=== PATIENT | male | born 1955 | race Caucasian/White ===

== ENCOUNTER 2019-05-15 11:59 | Day surgery (SDC) | payer OTHER, SELFPAY ==
--- NOTE | 2019-05-15 07:24 | P.HP_ITS ---
History of Present Illness History of Present Illness Date Patient Seen: 05/15/19 Time Patient Seen: 12:58 Chief complaint: 24028 Narrative: 63 year old male comes in today for consideration of a screening colonoscopy. Last colonoscopy on 08/08/2009 was normal. Secondary to family history of colon cancer in his mother, 5 year recall recommended. There have been no lower GI symptoms suggesting disease such as a change in bowel habits, bleeding, abdominal pain or anemia. As noted above, mother had colon cancer. Denies family history of colon polyps. Overall health issues have been stable, including no major cardiac events for at least 6 weeks. PCP: Dr. Rivas. Past medical history: Basal cell carcinoma of nose Depression Elevated PSA Degenerative disc disease, lumbar Sciatica Hyperlipidemia Alcohol abuse in remission Tobacco use disorder Past surgical history: Herniated disc surgery, 1989 Family history: Father, heart disease, cancer Mother: Colon cancer, alcohol, stroke Siblings: 4 brothers, 1 with diabetes Social history: , works at [employer]. Meds Home Medications and Allergies Home Medications Medication Instructions Recorded Confirmed Type aspirin 325 mg PO PRN #0 03/16/11 05/15/19 History ibuprofen 600 mg PO PRN #0 03/16/11 05/15/19 History atorvastatin 10 mg PO BEDTIME 05/15/19 05/15/19 History citalopram 10 mg PO DAILY 05/15/19 05/15/19 History Allergies Allergy/AdvReac Type Severity Reaction Status Date / Time No Known Drug Allergies Allergy Verified 05/15/19 12:14 Review of Systems Review of Systems ROS Unobtainable: All systems reviewed & are unremarkable except as noted in HPI and below Exam Narrative Exam Narrative: GENERAL: Alert and oriented, appearing stated age and in no acute distress. HEENT: Head normocephalic/atraumatic. Pupils equal, round, and reactive to light and accomodation. Extraocular muscles intact. Tympanic membranes clear. Nasal mucosa moist, septum midline. Oral mucosa moist, no lesions. Neck soft and supple, no lymphadenopathy. LUNGS: Clear to ausculation bilaterally, no wheezes, rhonchi or rales. CV: Normal S1 and S2 with regular rate and rhythm, no audible murmurs, rubs or gallops. BREASTS: Symmetric, no masses or lesions. No nipple retraction or discharge. No supraclavicular or axillary lymphadenopathy. ABDOMEN: Soft, non-tender, non-distended, no organomegaly. Positive bowel sounds. EXTREMITIES: No clubbing, cyanosis, or edema. NEURO: Cranial nerves II through XII grossly intact, no focal deficits. PSYCH: Alert and oriented x 3. SKIN: No concerning lesions. Assessment & Plan Assessment & Plan narrative: 1. Family history of colon cancer 2. Screening for colon cancer Plan for colonoscopy. The nature and character of the procedure as well as anticipated results were discussed. The possibility of not completing the procedure was also discussed. Possible complications including aspiration pneumonia, bleeding, perforation and reaction to medications either for sedation or preparation and missed lesions were discussed. Questions were answered and proceeding to the colonoscopy was elected. Informed consent signed. I sincerely appreciate the referral allowing me to participate in this patient's care. Please contact me with any questions or concerns.
[2019-05-15] MEDS: SODIUM CHLORIDE 0.9% 1,000 ML 200 ML IV (12:16)
[2019-05-15] MEDS: HYOSCYAMINE 0.125 MG TABLET PO (12:19)
[2019-05-15 12:26] VITALS: BP 134/81; PULSE 79; RESP 18; TEMP 36.8; O2SAT 97; BMI 31.1
--- NOTE | 2019-05-15 12:59 | PM.OP.ENDO ---
Operative Date/Time/Diagnoses Date of procedure: 05/15/19 Time of procedure: 13:00 Pre-op diagnosis: 1. Family history of colon cancer 2. Screening for colon cancer Post-op diagnosis: other ( 1. Normal colonoscopy, 2. Diverticulosis, left-sided) Procedure & Clinicians Study performed: Colonoscopy Same procedure as scheduled: Yes Indications: 1. Family history of colon cancer 2. Screening for colon cancer Surgeon: Eli Werner Procedure Notes SCOAP/Timeout: 13:00 Procedure in detail: ENDOSCOPIST: Eli Werner MD Sedation RN: Riri Mayo RN Sedation start time: 1:03 p.m. Sedation end time: 1:26 p.m. PROCEDURE: Colonoscopy INDICATIONS: 1. Family history of colon cancer 2. Screening for colon cancer MEDICATION: Levsin 0.125 mg sublingual, incremental doses of Versed and fentanyl until appropriate level sedation achieved. ASA CLASS: 2 CECAL WITHDRAWAL TIME: 7 minutes COMPLICATIONS: None. EXTENT OF PROCEDURE: Cecum. QUALITY OF PREP: Good with portions of liquid stool. PROCEDURE: Prior to insertion of the colonoscope, a digital rectal examination was accomplished with circumferential palpation of the distal rectal mucosa without significant findings being noted. The high-definition colonoscope was passed into the rectum in the usual fashion and advanced over to the cecum without difficulty. The ileocecal valve, appendiceal stoma, and medial wall all could be inspected and no abnormalities were seen. ASCENDING COLON: As the colonoscope was withdrawn, care was taken to expose and inspect the haustral folds and no abnormalities were seen. HEPATIC FLEXURE: Normal no polyps, diverticula or other abnormalities. TRANSVERSE COLON: Normal no polyps, diverticula or other abnormalities. DESCENDING COLON: Minor diverticulosis, otherwise normal, no polyps, or other abnormalities. SIGMOID COLON: Minor diverticulosis, otherwise normal, no polyps, or other abnormalities. RECTUM: Normal. J maneuver was produced. There was no significant perianal disease. The J maneuver was broken. The remainder of the rectum was inspected and there was no external hemorrhoid disease. The scope was withdrawn. IMPRESSION: 1. Normal colonoscopy 2. Diverticulosis, left-sided, mild PLAN: 1. Repeat colonoscopy in 5 years secondary to family history of colon cancer. The possibility of a missed lesion including a malignancy has been discussed with the patient previously. Potential alarm symptoms have been discussed and should be reported immediately. Scope withdrawal time: 7 minutes Sedation minutes: 23 Findings: diverticulosis Specimen(s): none sent Complications: none Impression: As above Post-procedure Recommendations: Colonscopy in 5 years Follow up: as needed Disposition: PACU
[2019-05-15] MEDS: MIDAZOLAM 5 MG/5 ML VIAL IV (13:06)
[2019-05-15] MEDS: fentaNYL 250 MCG/5 ML INJ IV (13:10)
[2019-05-15 13:31] VITALS: BP 127/76; PULSE 66; RESP 16; TEMP 36.2; O2SAT 94
[2019-05-15 13:35] VITALS: BP 124/73; PULSE 72; RESP 16; O2SAT 90
[2019-05-15 13:40] VITALS: BP 117/71; PULSE 63; RESP 15; O2SAT 92
[2019-05-15 14:06] VITALS: BP 111/69; PULSE 64; RESP 15; TEMP 36.4; O2SAT 95
== END 2019-05-15 14:12 | disposition home or self-care (01) ==
PROVIDERS: Family Provider Family Medicine; PCP Family Medicine; Visit Provider Student in an Organized Health Care Education/Training Program
PROC: 0DJD8ZZ Inspection of Lower Intestinal Tract, Via Natural or Artificial Opening Endoscopic (ICD-10-PCS; CPT 45378; principal; 2019-05-15 13:00)
DX: Z12.11 Encounter for screening for malignant neoplasm of colon (principal); K57.30 Diverticulosis of large intestine without perforation or abscess without bleeding; Z80.0 Family history of malignant neoplasm of digestive organs
CPT/HCPCS: G0105; J2250; J3010

== ENCOUNTER → 2021-03-13 09:55 | Outpatient (CLI) | payer OTHER, SELFPAY ==
[2021-03-13 10:08] LABS: Add Manual Diff / Slide Review NO; Basophils Absolute Auto 100 /uL (0-100); Basophils Percent Auto 0.9 % (0-2); Eosinophils Absolute Auto 300 /uL (0-450); Hemoglobin 15.9 g/dL (13.5-17.5); Lymphocytes Absolute Auto 2300 /uL (1100-4500); Lymphocytes Percent Auto 22.9 % (25-40); Mean Corpuscular Hemoglobin 29.8 PG (26-34); Mean Corpuscular Volume 87.7 fL (80-100); Monocytes Absolute Auto 900 /uL (0-900); Monocytes Percent Auto 8.7 % (3-14); Neutrophils Absolute Auto 6500 /uL (1500-7000); Neutrophils Percent Auto 64.5 % (50-75); Platelet Count 724 X10^3/uL (150-400); Red Blood Cell Count 5.36 X10^6/uL (4.5-5.9); Red Cell Distribution Width 15.7 % (11.6-14.8)
[2021-03-13 10:23] LABS: Alanine Aminotransferase 27 IU/L (<50); Albumin 4.1 g/dL (3.5-5.0); Albumin Globulin Ratio 1.4 (1.0-2.8); Alkaline Phosphatase 57 U/L (38-126); Aspartate Aminotransferase 34 IU/L (17-59); BUN Creatinine Ratio 23.8 (6-22); Bilirubin Total 0.4 mg/dL (0.2-1.3); Blood Urea Nitrogen 24 mg/dL (9-20); Calcium 9.4 mg/dL (8.4-10.2); Carbon Dioxide 28 mmol/L (22-32); Chloride 108 mmol/L (98-107); Estimated Glomerular Filt Rate > 60.0 mL/min (>60); Glucose 104 mg/dL (80-110); HEMOLYSIS 18 (0-50); Lactate Dehydrogenase 421 U/L (313-618); Potassium 4.5 mmol/L (3.4-5.1); Sodium 138 mmol/L (137-145); Total Protein 7.1 g/dL (6.3-8.2)
== END ==
PROVIDERS: Internal Medicine Medical Oncology; PCP Family Medicine; Referring Provider Family Medicine; Visit Provider Family Medicine
DX: D47.3 Essential (hemorrhagic) thrombocythemia (principal)
CPT/HCPCS: 36415; 80053; 81270; 83615; 85025

== ENCOUNTER → 2022-12-24 15:38 | Outpatient (CLI) | payer OTHER, SELFPAY ==
--- NOTE | 2022-12-24 15:39 | DI.US.S_ITS ---
PROCEDURE: US ABD AORTA ANEURYSM SCREEN INDICATIONS: SCREENING TECHNIQUE: Real time scanning was performed of the aorta and iliac arteries, with image documentation. COMPARISON: None. FINDINGS: Aorta: Proximal aortic diameter measures 2.9 cm. Mid-aorta measures 2.3 cm. Distal aortic diameter is 2.0 cm. Mild atherosclerotic plaque is noted. Iliac arteries: Right common iliac artery measures 2.3 cm. Left common iliac artery measures 1.8 cm. Atherosclerotic calcifications are present. IMPRESSION: No abdominal aortic aneurysm. Aortoiliac atherosclerosis is noted. Approved by: Trent Sanchez M.D. on 12/24/2022 at 20:41
== END ==
PROVIDERS: PCP Family Medicine; Referring Provider Family Medicine; Visit Provider Family Medicine
DX: Z13.6 Encounter for screening for cardiovascular disorders (principal); I70.0 Atherosclerosis of aorta
CPT/HCPCS: 76706

== ENCOUNTER → 2023-10-15 10:43 | Outpatient (CLI) | payer OTHER, SELFPAY ==
[2023-10-15 11:44] LABS: Add Manual Diff / Slide Review NO; Basophils Absolute Auto 0 /uL (0-100); Basophils Percent Auto 0.5 % (0-2); Eosinophils Absolute Auto 200 /uL (0-450); Eosinophils Percent Auto 2.2 % (2-4); Hematocrit 44.6 % (41-53); Hemoglobin 15.3 g/dL (13.5-17.5); Lymphocytes Absolute Auto 2100 /uL (1100-4500); Lymphocytes Percent Auto 30.7 % (25-40); Mean Corpuscular HGB Conc 34.3 % (30-36); Mean Corpuscular Hemoglobin 36.3 PG (26-34); Mean Corpuscular Volume 105.9 fL (80-100); Monocytes Absolute Auto 600 /uL (0-900); Neutrophils Absolute Auto 4100 /uL (1500-7000); Neutrophils Percent Auto 58.6 % (50-75); Platelet Count 496 X10^3/uL (150-400); Red Blood Cell Count 4.21 X10^6/uL (4.5-5.9); Red Cell Distribution Width 14.8 % (11.6-14.8); White Blood Cell Count 6.9 X10^3/uL (4.5-11.0)
[2023-10-15 11:59] LABS: Alanine Aminotransferase 24 IU/L (<50); Albumin 4.2 g/dL (3.5-5.0); Albumin Globulin Ratio 1.4 (1.0-2.8); Alkaline Phosphatase 61 U/L (38-126); Aspartate Aminotransferase 35 IU/L (17-59); BUN Creatinine Ratio 26.2 (6-22); Bilirubin Total 0.6 mg/dL (0.2-1.3); Blood Urea Nitrogen 27 mg/dL (9-20); Carbon Dioxide 24 mmol/L (22-32); Chloride 109 mmol/L (98-107); Estimated Glomerular Filt Rate > 60 mL/min (>60); Globulin 3.1 g/dL (1.7-4.1); Glucose 113 mg/dL (80-110); HEMOLYSIS < 15 (0-50); Potassium 4.2 mmol/L (3.4-5.1); Sodium 137 mmol/L (137-145); Total Protein 7.3 g/dL (6.3-8.2)
== END ==
LOC: LAB 10:48
PROVIDERS: PCP Family Medicine; Referring Provider Internal Medicine Hematology & Oncology; Visit Provider Internal Medicine Hematology & Oncology
DX: D47.3 Essential (hemorrhagic) thrombocythemia (principal)
CPT/HCPCS: 36415; 80053; 85025

== ENCOUNTER → 2024-01-27 07:43 | Outpatient (CLI) | payer OTHER, SELFPAY ==
[2024-01-27 08:59] LABS: Add Manual Diff / Slide Review NO; Basophils Absolute Auto 100 /uL (0-100); Basophils Percent Auto 0.9 % (0-2); Eosinophils Absolute Auto 200 /uL (0-450); Eosinophils Percent Auto 2.8 % (2-4); Hematocrit 43.2 % (41-53); Hemoglobin 14.9 g/dL (13.5-17.5); Lymphocytes Absolute Auto 1800 /uL (1100-4500); Lymphocytes Percent Auto 28.2 % (25-40); Mean Corpuscular HGB Conc 34.4 % (30-36); Mean Corpuscular Hemoglobin 35.9 PG (26-34); Mean Corpuscular Volume 104.5 fL (80-100); Monocytes Absolute Auto 600 /uL (0-900); Monocytes Percent Auto 9.1 % (3-14); Neutrophils Absolute Auto 3800 /uL (1500-7000); Platelet Count 450 X10^3/uL (150-400); Red Blood Cell Count 4.14 X10^6/uL (4.5-5.9); Red Cell Distribution Width 14.6 % (11.6-14.8); White Blood Cell Count 6.4 X10^3/uL (4.5-11.0)
[2024-01-27 09:24] LABS: Alanine Aminotransferase 20 IU/L (<50); Albumin Globulin Ratio 1.5 (1.0-2.8); Alkaline Phosphatase 56 U/L (38-126); Aspartate Aminotransferase 24 IU/L (17-59); BUN Creatinine Ratio 22.7 (6-22); Bilirubin Total 0.6 mg/dL (0.2-1.3); Blood Urea Nitrogen 25 mg/dL (9-20); Carbon Dioxide 25 mmol/L (22-32); Chloride 108 mmol/L (98-107); Estimated Glomerular Filt Rate > 60 mL/min (>60); Globulin 2.6 g/dL (1.7-4.1); Glucose 109 mg/dL (80-110); HEMOLYSIS < 15 (0-50); Sodium 138 mmol/L (137-145); Total Protein 6.6 g/dL (6.3-8.2)
== END ==
PROVIDERS: PCP Family Medicine; Referring Provider Internal Medicine Hematology & Oncology; Visit Provider Internal Medicine Hematology & Oncology
DX: D47.3 Essential (hemorrhagic) thrombocythemia (principal)
CPT/HCPCS: 36415; 80053; 85025

== ENCOUNTER 2024-02-27 15:31 | Emergency (ER) | payer OTHER, SELFPAY ==
[2024-02-27] VITALS (12 sets, daily range): BP systolic 122–148; BP diastolic 63–86; PULSE 69–84; RESP 11–27; TEMP 36.1; O2SAT 94–97; BMI 32.1
--- NOTE | 2024-02-27 15:33 | DI.CT.S_ITS ---
PROCEDURE: CT TRAUMA CHEST ABDOMEN PELVIS INDICATIONS: Fall off ladder. Right hip pain TECHNIQUE: MDCT axial chest images were obtained with IV contrast in the arterial phase. Maximum intensity projections and multiplanar reformats were obtained. MDCT axial abdomen and pelvis images were obtained with IV contrast in the portal venous phase. Multiplanar reformats were obtained. Optional delayed phase scanning may also be obtained Advanced techniques were used to lower patient radiation exposure. COMPARISON:None. FINDINGS Image Quality: Diagnostic. Chest: Lungs and pleura: No pneumothorax or hemothorax. No pulmonary contusions or lacerations. Mild bibasilar bronchiectasis and [id number] areas of right greater than left atelectasis and scarring. These are likely chronic findings. Small nodules, for example in the right image 9/124, under 6 millimeters, could be followed in [address] chest CT if the patient is considered high risk. Vascular: No dissection or pseudoaneurysm. No incidental central pulmonary embolism. No hemopericardium. Coronary and atherosclerotic calcifications. Mediastinum: No mediastinum hematoma. No suspicious mass or lymph nodes. No actionable thyroid nodules. Mildly patulous esophagus. Chest wall: Intact clavicles, scapula, and glenohumeral joint. Nonacute appearing bilateral rib fractures. Thoracic spine: No acute fracture or traumatic subluxation. ABDOMEN and PELVIS: Liver: No laceration or capsular hematoma. Left lobe granuloma Gallbladder: Unremarkable. Biliary system: Non-dilated. Pancreas: Unremarkable. Spleen: No laceration or capsular hematoma. Adrenals: No suspicious nodules. Kidneys: No contrast extravasation or hydronephrosis. No solid masses. Nonobstructing stones versus hilar vascular calcifications Vessels and lymph nodes: No pathology lymph nodes by size criteria. No dissection or aneurysm. No retroperitoneal hematoma. Moderate atherosclerotic disease. Bowel and peritoneum: No suspicious region of mesenteric hemorrhage or hemoperitoneum. No bowel obstruction. Nondilated appendix. Colonic diverticula. Pelvis: Unremarkable bladder. Pelvic ring and femurs: No pelvic ring disruption. There is a moderately comminuted and displaced fracture of the proximal femoral shaft, with a displaced lesser trochanter fragment and greater trochanter fragment. Lumbar spine: Age-indeterminate height loss of L2. Abdominal wall: Hemorrhage is seen adjacent to the right femur fracture. IMPRESSION: Complex right proximal femur fracture as described above. Age-indeterminate height loss at L2. Otherwise, no acute fracture or traumatic subluxation. Other findings as above. No acute traumatic abnormality in the chest. Dictated by: Yosef Buckley M.D. on 02/27/2024 at 16:40 Approved by: Yosef Buckley M.D. on 02/27/2024 at 16:53
--- NOTE | 2024-02-27 15:33 | DI.CT.S_ITS ---
PROCEDURE: CT HEAD/BRAIN WO CON INDICATIONS: Fall off ladder with head injury TECHNIQUE: Noncontrast 4.5 mm thick angled axial sections acquired from the foramen magnum to the vertex, with coronal and sagittal reformats. For radiation dose reduction, the following was used: automated exposure control, adjustment of mA and/or kV according to patient size. COMPARISON: None. FINDINGS: Image quality: Diagnostic CSF spaces: Basal cisterns are patent. Lateral ventricles are symmetric. Volume: Vascular calcifications. Periventricular white matter disease is commonly seen with chronic microangiopathy. Volume loss is present. These findings are [id number] Brain: No acute hemorrhage or gross loss of chung-white differentiation. Craniofacial structures: No significant paranasal sinus opacity IMPRESSION: No acute intracranial hemorrhage. Dictated by: Yosef Buckley M.D. on 02/27/2024 at 16:37 Approved by: Yosef Buckley M.D. on 02/27/2024 at 16:38
--- NOTE | 2024-02-27 15:33 | DI.CT.S_ITS ---
PROCEDURE: CT CERVICAL SPINE WO CON INDICATIONS: Fall off ladder with head injury TECHNIQUE: Noncontrast 3 mm thick sections acquired from the skull base to the T4 level. Sagittal and coronal reformats were then constructed. For radiation dose reduction, the following was used: automated exposure control, adjustment of mA and/or kV according to patient size. COMPARISON: None. FINDINGS: Image quality: Diagnostic Bones: Mild cervical degenerative changes. Vertebral body heights are well maintained. No traumatic subluxation. Soft tissues: No pathologic prevertebral soft tissue swelling. There are vascular calcifications. Chest findings are separately dictated. IMPRESSION: No displaced fracture or traumatic subluxation. If there is high concern for further derangement, consider MRI evaluation. Dictated by: Yosef Buckley M.D. on 02/27/2024 at 16:38 Approved by: Yosef Buckley M.D. on 02/27/2024 at 16:40
[2024-02-27 15:47] LABS: Add Manual Diff / Slide Review NO; Basophils Absolute Auto 0 /uL (0-100); Basophils Percent Auto 0.5 % (0-2); Eosinophils Absolute Auto 200 /uL (0-450); Eosinophils Percent Auto 1.7 % (2-4); Hemoglobin 14.1 g/dL (13.5-17.5); Lymphocytes Absolute Auto 2100 /uL (1100-4500); Lymphocytes Percent Auto 22.8 % (25-40); Mean Corpuscular HGB Conc 34.4 % (30-36); Mean Corpuscular Hemoglobin 35.3 PG (26-34); Mean Corpuscular Volume 102.4 fL (80-100); Monocytes Absolute Auto 700 /uL (0-900); Monocytes Percent Auto 7.4 % (3-14); Neutrophils Absolute Auto 6200 /uL (1500-7000); Neutrophils Percent Auto 67.6 % (50-75); Platelet Count 487 X10^3/uL (150-400); Red Blood Cell Count 4.01 X10^6/uL (4.5-5.9); White Blood Cell Count 9.2 X10^3/uL (4.5-11.0)
[2024-02-27 15:58] LABS: Alanine Aminotransferase 28 IU/L (<50); Albumin 3.9 g/dL (3.5-5.0); Albumin Globulin Ratio 1.6 (1.0-2.8); Alkaline Phosphatase 56 U/L (38-126); Aspartate Aminotransferase 34 IU/L (17-59); BUN Creatinine Ratio 21.6 (6-22); Bilirubin Total 0.7 mg/dL (0.2-1.3); Blood Urea Nitrogen 24 mg/dL (9-20); Calcium 8.9 mg/dL (8.4-10.2); Carbon Dioxide 23 mmol/L (22-32); Chloride 107 mmol/L (98-107); Estimated Glomerular Filt Rate > 60 mL/min (>60); Globulin 2.5 g/dL (1.7-4.1); Glucose 128 mg/dL (80-110); HEMOLYSIS < 15 (0-50); Lipase 94 U/L (23-300); Potassium 4.1 mmol/L (3.4-5.1); Sodium 136 mmol/L (137-145); Total Protein 6.4 g/dL (6.3-8.2)
[2024-02-27] MEDS: ONDANSETRON 4 MG/2 ML INJ IV (15:59)
--- NOTE | 2024-02-27 16:08 | ED_ITS ---
HPI - General Adult General Chief complaint: Trauma Stated complaint: Fall off a ladder 12-15ft Time Seen by Provider: 02/27/24 15:32 Source: patient and EMS Mode of arrival: EMS History of Present Illness HPI narrative: Patient is a 68-year-old male. Not on anti coagulation. Is on hydroxyurea secondary to some platelet issues. Is here for evaluation of injuries that he sustained when he fell approximately 15 ft from a ladder. Landed on his right side. Has an obvious deformity to the right hip. Potential loss of consciousness. Is in a cervical collar and on a vacuum backboard. He denied pain medication by EMS. Has a history of alcohol and drug abuse and did not want to be tempted so denied any of these medications. Denies chest pain. No abdominal pain. No headache. Most of the pain is located in his right hip. No upper extremity discomfort. Related Data Home Medications Medication Instructions Recorded Confirmed atorvastatin 10 mg tablet 60 mg PO BEDTIME 05/15/19 02/27/24 citalopram 10 mg tablet 20 mg PO DAILY 05/15/19 02/27/24 losartan 25 mg tablet 100 mg PO DAILY 11/21/21 02/27/24 Previous Rx's Medication Instructions Recorded hydroxyurea 500 mg capsule (Hydrea) 500 mg PO DAILY #90 caplets 03/20/22 Allergies Allergy/AdvReac Type Severity Reaction Status Date / Time No Known Drug Allergies Allergy Verified 02/27/24 15:52 Review of Systems Review of Systems ROS Unobtainable: All systems reviewed & are unremarkable except as noted in HPI and below Patient History Social History household members: spouse Exam Initial Vital Signs Initial Vital Signs: Vital Signs Pulse Rate 77 02/27/24 15:34 Pulse Oximetry 95 02/27/24 15:34 Const General: comfortable HENMT Head: normal to inspection and normocephalic Chest Chest: No crepitus and No tenderness Resp Effort & Inspection: normal respiratory effort Auscultation: clear to auscultation bilaterally Cardio Rate: regular rate Rhythm: regular rhythm Pulses: dorsalis pedis present on the right GI Inspection: normal to inspection and non-distended Palpation: soft and No tender Back/Spine/Pelvis Cervical Spine: collar present Thoracic/Lumbar Spine: No thoracic spinal tenderness and No lumbar spinal tenderness Skin Other: Superficial abrasions to right elbow Neuro General: patient alert, patient awake and patient oriented x3 Extrem Other: Obvious deformity to the right hip. Course Orders Ordered: ED Orders 02/27/24 15:33 CT Trauma Chest Abdomen Pelvis Stat CT cervical spine wo con Stat CT head/brain wo con Stat 02/27/24 15:40 Complete Blood Count AUTO DIFF Stat Comprehensive Metabolic Panel Stat Lipase Stat 02/27/24 17:24 XR femur RT min 2V Stat XR hip w pel if done RT 2V Stat XR knee RT 1to2V Stat Discontinued Medications Acetaminophen (Ofirmev) 1,000 mg in 100 mls @ 400 mls/hr IV NOW ONE Stop: 02/27/24 16:22 Last Infusion: 02/27/24 16:35 Dose: Infused Documented By: Admin: 02/27/24 16:13 Dose: 400 mls/hr Documented By: SAILAJA Ondansetron HCl (Ondansetron 4 Mg/2 Ml Inj) 4 mg IV NOW ONE Stop: 02/27/24 15:58 Last Admin: 02/27/24 15:59 Dose: 4 mg Documented By: SAILAJA Vital Signs Vital signs: Vital Signs - 8 hr 02/27/24 15:34 02/27/24 15:35 02/27/24 15:35 Temperature Pulse Rate 77 77 Respiratory Rate Blood Pressure 145/81 H Pulse Oximetry 95 94 Oxygen Delivery Method 02/27/24 15:52 02/27/24 15:53 02/27/24 15:53 Temperature 97.0 F L Pulse Rate 83 73 Respiratory Rate 17 15 Blood Pressure 145/81 H 132/66 Pulse Oximetry 94 95 Oxygen Delivery Method Room Air 02/27/24 16:00 02/27/24 16:00 02/27/24 16:30 Temperature Pulse Rate 72 69 Respiratory Rate 18 11 L Blood Pressure 122/63 Pulse Oximetry 95 96 Oxygen Delivery Method 02/27/24 16:30 02/27/24 17:00 02/27/24 17:00 Temperature Pulse Rate 73 Respiratory Rate 15 Blood Pressure 130/73 129/71 Pulse Oximetry 97 Oxygen Delivery Method 02/27/24 17:30 02/27/24 17:30 Temperature Pulse Rate 81 Respiratory Rate 27 H Blood Pressure 146/74 H Pulse Oximetry 97 Oxygen Delivery Method Medical Decision Making Lab Data Lab results reviewed: Yes I reviewed the patient's lab results. 02/27/24 15:40 02/27/24 15:40 Labs: Lab Results 02/27/24 Range/Units 15:40 WBC 9.2 (4.5-11.0) X10^3/uL RBC 4.01 L (4.5-5.9) X10^6/uL Hgb 14.1 (13.5-17.5) g/dL Hct 41.0 (41-53) % MCV 102.4 H (80-100) fL MCH 35.3 H (26-34) PG MCHC 34.4 (30-36) % RDW 14.0 (11.6-14.8) % Plt Count 487 H (150-400) X10^3/uL Neut % (Auto) 67.6 (50-75) % Lymph % (Auto) 22.8 L (25-40) % [place] % (Auto) 7.4 (3-14) % Eos % (Auto) 1.7 L (2-4) % Baso % (Auto) 0.5 (0-2) % Neut # (Auto) 6200 (3004-4991) /uL Lymph # (Auto) 2100 (4678-2742) /uL [place] # (Auto) 700 (0-900) /uL Eos # (Auto) 200 (0-450) /uL Baso # (Auto) 0 (0-100) /uL Sodium 136 L (137-145) mmol/L Potassium 4.1 (3.4-5.1) mmol/L Chloride 107 (98-107) mmol/L Carbon Dioxide 23 (22-32) mmol/L BUN 24 H (9-20) mg/dL Creatinine 1.11 (0.66-1.25) mg/dL Estimated GFR > 60 (>60) mL/min BUN/Creatinine Ratio 21.6 (6-22) Glucose 128 H (80-110) mg/dL Calcium 8.9 (8.4-10.2) mg/dL Total Bilirubin 0.7 (0.2-1.3) mg/dL AST 34 (17-59) IU/L ALT 28 (<50) IU/L Alkaline Phosphatase 56 (38-126) U/L Total Protein 6.4 (6.3-8.2) g/dL Albumin 3.9 (3.5-5.0) g/dL Globulin 2.5 (1.7-4.1) g/dL Albumin/Globulin Ratio 1.6 (1.0-2.8) Lipase 94 (23-300) U/L Imaging Data CT chest/abd/pelvis: Radiologist's Impression: PROCEDURE: CT TRAUMA CHEST ABDOMEN PELVIS INDICATIONS: Fall off ladder. Right hip pain TECHNIQUE: MDCT axial chest images were obtained with IV contrast in the arterial phase. Maximum intensity projections and multiplanar reformats were obtained. MDCT axial abdomen and pelvis images were obtained with IV contrast in the portal venous phase. Multiplanar reformats were obtained. Optional delayed phase scanning may also be obtained Advanced techniques were used to lower patient radiation exposure. COMPARISON:None. FINDINGS Image Quality: Diagnostic. Chest: Lungs and pleura: No pneumothorax or hemothorax. No pulmonary contusions or lacerations. Mild bibasilar bronchiectasis and [id number] areas of right greater than left atelectasis and scarring. These are likely chronic findings. Small nodules, for example in the right image 9/124, under 6 millimeters, could be followed in [address] with optional chest CT if the patient is considered high risk. Vascular: No dissection or pseudoaneurysm. No incidental central pulmonary embolism. No hemopericardium. Coronary and atherosclerotic calcifications. Mediastinum: No mediastinum hematoma. No suspicious mass or lymph nodes. No actionable thyroid nodules. Mildly patulous esophagus. Chest wall: Intact clavicles, scapula, and glenohumeral joint. Nonacute appearing bilateral rib fractures. Thoracic spine: No acute fracture or traumatic subluxation. ABDOMEN and PELVIS: Liver: No laceration or capsular hematoma. Left lobe granuloma Gallbladder: Unremarkable. Biliary system: Non-dilated. Pancreas: Unremarkable. Spleen: No laceration or capsular hematoma. Adrenals: No suspicious nodules. Kidneys: No contrast extravasation or hydronephrosis. No solid masses. Nonobstructing stones versus hilar vascular calcifications Vessels and lymph nodes: No pathology lymph nodes by size criteria. No dissection or aneurysm. No retroperitoneal hematoma. Moderate atherosclerotic disease. Bowel and peritoneum: No suspicious region of mesenteric hemorrhage or hemoperitoneum. No bowel obstruction. Nondilated appendix. Colonic diverticula. Pelvis: Unremarkable bladder. Pelvic ring and femurs: No pelvic ring disruption. There is a moderately comminuted and displaced fracture of the proximal femoral shaft, with a displaced lesser trochanter fragment and greater trochanter fragment. Lumbar spine: Age-indeterminate height loss of L2. Abdominal wall: Hemorrhage is seen adjacent to the right femur fracture. IMPRESSION: Complex right proximal femur fracture as described above. Age-indeterminate height loss at L2. Otherwise, no acute fracture or traumatic subluxation. Other findings as above. No acute traumatic abnormality in the chest. CT - cervical spine: Radiologist's Impression: PROCEDURE: CT CERVICAL SPINE WO CON INDICATIONS: Fall off ladder with head injury TECHNIQUE: Noncontrast 3 mm thick sections acquired from the skull base to the T4 level. Sagittal and coronal reformats were then constructed. For radiation dose reduction, the following was used: automated exposure control, adjustment of mA and/or kV according to patient size. COMPARISON: None. FINDINGS: Image quality: Diagnostic Bones: Mild cervical degenerative changes. Vertebral body heights are well maintained. No traumatic subluxation. Soft tissues: No pathologic prevertebral soft tissue swelling. There are vascular calcifications. Chest findings are separately dictated. IMPRESSION: No displaced fracture or traumatic subluxation. If there is high concern for further derangement, consider MRI evaluation. CT scan - head: Radiologist's Impression: PROCEDURE: CT HEAD/BRAIN WO CON INDICATIONS: Fall off ladder with head injury TECHNIQUE: Noncontrast 4.5 mm thick angled axial sections acquired from the foramen magnum to the vertex, with coronal and sagittal reformats. For radiation dose reduction, the following was used: automated exposure control, adjustment of mA and/or kV according to patient size. COMPARISON: None. FINDINGS: Image quality: Diagnostic CSF spaces: Basal cisterns are patent. Lateral ventricles are symmetric. Volume: Vascular calcifications. Periventricular white matter disease is commonly seen with chronic microangiopathy. Volume loss is present. These findings are [id number] Brain: No acute hemorrhage or gross loss of chung-white differentiation. Craniofacial structures: No significant paranasal sinus opacity IMPRESSION: No acute intracranial hemorrhage. Extremity x-ray #1: Radiologist's Impression: PROCEDURE: XR FEMUR RT MIN 2V INDICATIONS: Intertrochanteric fracture TECHNIQUE: 2 views of the femur were acquired. COMPARISON: None. FINDINGS: Bones: Intratrochanteric fracture of the right femur. Soft tissues: No suspicious soft tissue calcifications or masses. IMPRESSION: Intratrochanteric fracture of the right femur. Extremity x-ray #2: Radiologist's Impression: PROCEDURE: XR HIP W PEL IF DONE RT 2V INDICATIONS: Intertrochanteric fracture TECHNIQUE: 2 views of the hip were acquired. COMPARISON: None. FINDINGS: Bones: Oblique fracture through the intratrochanteric region of the right femur, with angulation. Soft tissues: No suspicious soft tissue calcifications or masses. IMPRESSION: Oblique, angulated fracture of the right femur. Extremity x-ray #3: Radiologist's Impression: PROCEDURE: XR KNEE RT 1TO2V INDICATIONS: Intertrochanteric hip fracture, knee x-ray requested by orth TECHNIQUE: 3 views of the knee were acquired. COMPARISON: None. FINDINGS: Bones: No fractures or dislocations. No suspicious bony lesions. Tricompartmental osteophytosis. Soft tissues: Trace joint effusion. No suspicious soft tissue calcifications. Vascular calcifications. IMPRESSION: No acute bony abnormality or significant effusion. MDM Narrative Medical decision making narrative: Patient arrived as a modified trauma in a cervical collar and vacuum splint. Has obvious deformity to the right proximal femur. CT scan of the head and cervical spine are negative. He has no spinal tenderness in the thoracic or lumbar spine. Has what appears to be a proximal right femur/intertrochanteric femur fracture on the CT scan. Rest of his CT scans are negative. Superficial abrasion to the right forearm. Discussed the case with Dr. Obando on-call for Orthopedic surgery who recommended x-rays. X-rays once again demonstrate fracture. He was neurovascularly intact. He was comfortable with his leg somewhat in flexion. He was denied opioid pain medication. He was a history of opioid abuse and also alcohol abuse and states that he does not want any opioid pain medicine. He was given IV Tylenol. He states that with the IV Tylenol and not moving his leg in in the position that it is and he is actually relatively well controlled with regard to pain. Orthopedic surgery recommends transfer to [facility] given the complexity of the fracture. I discussed the case with Dr. Flores at [facility] Emergency Department who accepts the patient in transfer. Discussed the need for transfer with the patient. Patient stable for transport. We will hold on any splinting and just make sure the patient is at position of comfort. Patient expressed understanding and agreement with this plan. Discharge Plan Departure Patient Disposition: [facility]fer [facility] Clinical Impression: Intertrochanteric fracture of right hip Prescriptions: No Action atorvastatin 10 mg Tablet 60 mg PO BEDTIME citalopram 10 mg Tablet 20 mg PO DAILY losartan 25 mg Tablet 100 mg PO DAILY hydroxyurea [Hydrea] 500 mg Capsule 500 mg PO DAILY Qty: 90 3RF Referrals: Lisa Rivas MD [Primary Care Provider] -
[2024-02-27] MEDS: ACETAMINOPHEN IV 1,000 MG/100 ML VIAL 400 MG IV (16:13)
--- NOTE | 2024-02-27 17:24 | DI.RAD.S_ITS ---
PROCEDURE: XR FEMUR RT MIN 2V INDICATIONS: Intertrochanteric fracture TECHNIQUE: 2 views of the femur were acquired. COMPARISON: None. FINDINGS: Bones: Intratrochanteric fracture of the right femur. Soft tissues: No suspicious soft tissue calcifications or masses. IMPRESSION: Intratrochanteric fracture of the right femur. Dictated by: Sam Quick M.D. on 02/27/2024 at 18:09 Approved by: Sam Quick M.D. on 02/27/2024 at 18:10
--- NOTE | 2024-02-27 17:24 | DI.RAD.S_ITS ---
PROCEDURE: XR HIP W PEL IF DONE RT 2V INDICATIONS: Intertrochanteric fracture TECHNIQUE: 2 views of the hip were acquired. COMPARISON: None. FINDINGS: Bones: Oblique fracture through the intratrochanteric region of the right femur, with angulation. Soft tissues: No suspicious soft tissue calcifications or masses. IMPRESSION: Oblique, angulated fracture of the right femur. Dictated by: Sam Quick M.D. on 02/27/2024 at 18:07 Approved by: Sam Quick M.D. on 02/27/2024 at 18:08
--- NOTE | 2024-02-27 17:24 | DI.RAD.S_ITS ---
PROCEDURE: XR KNEE RT 1TO2V INDICATIONS: Intertrochanteric hip fracture, knee x-ray requested by orth TECHNIQUE: 3 views of the knee were acquired. COMPARISON: None. FINDINGS: Bones: No fractures or dislocations. No suspicious bony lesions. Tricompartmental osteophytosis. Soft tissues: Trace joint effusion. No suspicious soft tissue calcifications. Vascular calcifications. IMPRESSION: No acute bony abnormality or significant effusion. Dictated by: Sam Quick M.D. on 02/27/2024 at 18:06 Approved by: Sam Quick M.D. on 02/27/2024 at 18:06
[2024-02-27] MEDS: KETOROLAC 30 MG/ML VIAL 15 MG IV (19:31)
== END 2024-02-27 19:44 | disposition short-term general hospital (02) ==
PROVIDERS: Emergency Provider Emergency Medicine; PCP Family Medicine
DX: S72.141A Displaced intertrochanteric fracture of right femur, initial encounter for closed fracture (principal); S09.90XA Unspecified injury of head, initial encounter; S50.811A Abrasion of right forearm, initial encounter; W11.XXXA Fall on and from ladder, initial encounter
CPT/HCPCS: 36415; 70450; 71275; 72125; 73502; 73552; 73560; 74177; 80053; 83690; 85025; 96365; 96375; 99285; J0136; J1885; J2405; Q9967

== ENCOUNTER 2024-06-05 13:36 | Day surgery (SDC) | payer OTHER, SELFPAY ==
[2024-06-05 14:36] VITALS: BP 151/85; PULSE 80; RESP 16; TEMP 36.1; O2SAT 97
[2024-06-05] MEDS: FLEETS ENEMA 1 EACH PR (14:43)
--- NOTE | 2024-06-05 15:09 | PM.HP.1 ---
History of Present Illness History of Present Illness Date Patient Seen: 06/05/24 Time Patient Seen: 15:10 Chief complaint: Colonoscopy Narrative: 68-year-old man family history of colon cancer in both mother and brother here for screening colonoscopy. Last colonoscopy 2018. No abdominal concerns today. PFSH Family History (Updated 06/05/24 @ 15:10 by Brayden Naik MD) Mother Cancer Social History household members: spouse alcohol intake: former Meds Home Medications and Allergies Home Medications Medication Instructions Recorded Confirmed Type atorvastatin 10 mg tablet 60 mg PO BEDTIME 05/15/19 06/05/24 History citalopram 10 mg tablet 20 mg PO DAILY 05/15/19 06/05/24 History losartan 25 mg tablet 100 mg PO DAILY 11/21/21 06/05/24 History hydroxyurea 500 mg capsule (Hydrea) 500 mg PO DAILY #90 caplets 03/20/22 06/05/24 Rx aspirin 81 mg tablet 81 mg PO DAILY 06/05/24 06/05/24 History Allergies Allergy/AdvReac Type Severity Reaction Status Date / Time No Known Drug Allergies Allergy Verified 06/05/24 14:33 Exam Vital Signs (past 8 hours): - 06/05/24 14:36 Temperature 96.9 F L Pulse Rate 80 Respiratory Rate 16 Blood Pressure 151/85 H Pulse Oximetry 97 Oxygen Delivery Method Room Air Oxygen Delivery Method Room Air Narrative Exam Narrative: General adult man alert oriented no acute distress Chest nonlabored respiration Extremities warm well perfused Assessment & Plan Assessment and plan (1) Family history of colon cancer: Status: Acute Assessment & Plan narrative: The patient requires colorectal screening and colonoscopy is recommended. Technical details were discussed. Risks, benefits, alternatives explained. Risks including but not limited to myocardial infarction, aspiration, bleeding, pain, missed lesion, incomplete examination, need for further radiographic studies, intestinal injury, and need for major abdominal surgery were discussed. All questions were answered to their satisfaction, and they are in agreement with this plan. Time-Based Coding :: [TOTAL MINUTES] spent with patient and on the chart (including review of chart, obtaining history, exam, reviewing outside data, placing orders, documenting exam and treatment plan, and counseling patient) on [DATE].
[2024-06-05 15:25] VITALS: BP 104/70; PULSE 89; RESP 15; TEMP 36.9; O2SAT 97
--- NOTE | 2024-06-05 15:28 | PM.OP.COLON ---
Operative Date/Time/Diagnoses Date of procedure: 06/05/24 Time of procedure: 15:28 Pre-op diagnosis: Family history of colon cancer Procedure & Clinicians Study performed: Aborted colonoscopy Indications: Family history of colon cancer Surgeon: Brayden Naik Procedure Notes Procedure in detail: The history and physical was performed/updated and the patient is ASA class is 2. The procedure was discussed in detail with the patient. Potential risks complications including infection, bleeding, missed diagnosis, perforation, need for surgery, and were explained. Their questions were answered and informed consent was obtained. Patient was brought to the procedure room and placed standard monitoring equipment. The patient's vital signs were monitored continuously throughout the entire procedure. Prior to starting time-out was performed. The patient was placed in the left lateral recumbent position. Procedural sedation was administered by anesthesia. Examination began with a thorough inspection of the perianal area there was no evidence of fissures, fistulae, external hemorrhoids or cutaneous malignancy. The colonoscopy scope was then placed into the anal canal and was advanced forward. The quality of the preparation was inadequate for safe and accurate performance of the exam Post-procedure Plan for aftercare: Repeat with alternative prep
[2024-06-05 15:30] VITALS: BP 125/81; PULSE 83; RESP 10; O2SAT 97
[2024-06-05 15:36] VITALS: BP 122/83; PULSE 81; RESP 13; TEMP 36.9; O2SAT 97
== END 2024-06-05 16:00 | disposition home or self-care (01) ==
PROVIDERS: PCP Family Medicine; Referring Provider Surgery; Visit Provider Surgery
PROC: 0DJD8ZZ Inspection of Lower Intestinal Tract, Via Natural or Artificial Opening Endoscopic (ICD-10-PCS; CPT 45378; principal; 2024-06-05 15:15)
DX: Z12.11 Encounter for screening for malignant neoplasm of colon (principal); Z80.0 Family history of malignant neoplasm of digestive organs; Z53.09 Procedure and treatment not carried out because of other contraindication
CPT/HCPCS: G0105; J2704

== ENCOUNTER → 2024-07-30 07:11 | Outpatient (CLI) | payer OTHER, SELFPAY ==
--- NOTE | 2024-07-30 07:18 | DI.US.S_ITS ---
PROCEDURE: US CAROTID DOPPLER BI INDICATIONS: peripheral vascular disease, dizziness TECHNIQUE: Color and pulse Doppler interrogation was performed of both carotid systems, with image documentation and velocity measurements. COMPARISON: None. FINDINGS: Stenosis calculations are based on SRU (Society of Radiologists in Ultrasound) criteria. Right side: Brachial blood pressure: 123/75 mm Hg. Common carotid artery peak systolic velocity: 57 cm/sec. Internal carotid artery peak systolic velocity: 94 cm/sec. Internal carotid artery end diastolic velocity: 37 cm/sec. External carotid artery peak systolic velocity: 121 cm/sec. ICA/CCA peak systolic ratio: 1.7 . Cazares scale imaging description: Prominent calcific and soft plaque Percent internal carotid artery stenosis: Less than 50% stenosis . Vertebral artery: Flow direction is antegrade. Left side: Brachial blood pressure: 139/78 mm Hg. Common carotid artery peak systolic velocity: 91 cm/sec. Internal carotid artery peak systolic velocity: 93 cm/sec. Internal carotid artery end diastolic velocity: 39 cm/sec. External carotid artery peak systolic velocity: 196 cm/sec. ICA/CCA peak systolic ratio: 1.0 . Cazares scale imaging description: Prominent calcific and soft plaque Percent internal carotid artery stenosis: Less than 50% stenosis . Vertebral artery: Flow direction is antegrade. IMPRESSION: 1. In the right carotid artery, there is less than 50% stenosis based on peak systolic velocity criteria. Prominent calcific and soft plaquing. 2. In the left carotid artery, there is less than 50% stenosis stenosis based on peak systolic velocity criteria. Prominent calcific and soft plaquing. 3. Antegrade vertebral arteries. Dictated by: Lenard Mckeon M.D. on 07/30/2024 at 12:33 Approved by: Lenard Mckeon M.D. on 07/30/2024 at 12:36
--- NOTE | 2024-07-30 07:18 | DI.RAD.S_ITS ---
PROCEDURE: XR FEMUR RT MIN 2V INDICATIONS: FEMUR FRACTURE TECHNIQUE: 2 views of the femur were acquired. COMPARISON: [facility], CR, XR FEMUR RT MIN 2V, 02/27/2024, 17:26. FINDINGS: Bones: Healing intertrochanteric fracture with bridging callus medially but persistent lateral lucency is transfixed by intramedullary aidan and femoral neck screws in good position. The distal fixation screw in the distal femoral metaphysis has failed, and is angulated with fracture in the midportion. Second fixation screw intact. Soft tissues: No suspicious soft tissue calcifications or masses. IMPRESSION: Healing instrumented intertrochanteric fracture. Failure of distal fixation screw associated with intramedullary aidan Approved by: Arturo Downs M.D. on 07/30/2024 at 13:15
[2024-07-30 08:10] LABS: Add Manual Diff / Slide Review NO; Basophils Absolute Auto 100 /uL (0-100); Basophils Percent Auto 0.9 % (0-2); Eosinophils Absolute Auto 100 /uL (0-450); Hemoglobin 13.8 g/dL (13.5-17.5); Lymphocytes Absolute Auto 2200 /uL (1100-4500); Lymphocytes Percent Auto 35.1 % (25-40); Mean Corpuscular HGB Conc 34.3 % (30-36); Mean Corpuscular Hemoglobin 36.3 PG (26-34); Mean Corpuscular Volume 105.5 fL (80-100); Monocytes Absolute Auto 600 /uL (0-900); Monocytes Percent Auto 9.7 % (3-14); Neutrophils Absolute Auto 3300 /uL (1500-7000); Neutrophils Percent Auto 52.3 % (50-75); Platelet Count 491 X10^3/uL (150-400); Red Blood Cell Count 3.79 X10^6/uL (4.5-5.9); White Blood Cell Count 6.3 X10^3/uL (4.5-11.0)
[2024-07-30 08:35] LABS: Alanine Aminotransferase 18 IU/L (<50); Albumin Globulin Ratio 1.5 (1.0-2.8); Alkaline Phosphatase 69 U/L (38-126); Aspartate Aminotransferase 25 IU/L (17-59); BUN Creatinine Ratio 22.2 (6-22); Bilirubin Total 0.8 mg/dL (0.2-1.3); Blood Urea Nitrogen 22 mg/dL (9-20); Calcium 9.7 mg/dL (8.4-10.2); Carbon Dioxide 26 mmol/L (22-32); Chloride 102 mmol/L (98-107); Estimated Glomerular Filt Rate > 60 mL/min (>60); Globulin 2.7 g/dL (1.7-4.1); Glucose 100 mg/dL (80-110); HEMOLYSIS 19 (0-50); Lactate Dehydrogenase 198 U/L (120-246); Potassium 4.8 mmol/L (3.4-5.1); Sodium 135 mmol/L (137-145); Total Protein 6.7 g/dL (6.3-8.2)
== END ==
PROVIDERS: Student in an Organized Health Care Education/Training Program; Family Provider Family Medicine; PCP Family Medicine; Referring Provider Family Medicine; Visit Provider Family Medicine
DX: D47.3 Essential (hemorrhagic) thrombocythemia (principal); I73.9 Peripheral vascular disease, unspecified; T84.418A Breakdown (mechanical) of other internal orthopedic devices, implants and grafts, initial encounter; R42 Dizziness and giddiness; I65.23 Occlusion and stenosis of bilateral carotid arteries; S72.101D Unspecified trochanteric fracture of right femur, subsequent encounter for closed fracture with routine healing; X58.XXXD Exposure to other specified factors, subsequent encounter
CPT/HCPCS: 36415; 73552; 80053; 83615; 85025; 93880

== ENCOUNTER 2024-08-21 09:00 | Outpatient (RCR) | payer OTHER, SELFPAY ==
--- NOTE | 2024-08-06 13:51 | PT.OIE ---
Current Diagnoses Benign paroxysmal vertigo, bilateral (08/12/24) Peripheral vascular disease, unspecified (08/12/24) Visit Care Team Role Provider Type Lisa Rivas MD Attending Provider Physician Family Provider Primary Care Provider Referring Provider Specialty: Family Practice Address: [address] [place] [address], [id number] Email: [email or web address] Physical Therapy Initial Evaluation PT-OP-A Visit Information Start: 08/06/24 11:25 Freq: Status: Active Protocol: Document 08/13/24 12:10 DCW (Rec: 08/06/24 11:29 DCW [id number]) Out-Patient Physical Therapy Visit Information Visit Information Visit Type Initial Evaluation Visit Start Time 10:45 Visit Stop Time 11:20 Visit Number 1 Number of SKIMMER SCOOP OPERATOR Visits 0 Evaluation Information Evaluation Date 08/06/24 PT-OP-B Current Condition Start: 08/06/24 11:25 Freq: Status: Active Protocol: Document 08/13/24 12:10 DCW (Rec: 08/06/24 13:51 DCW [id number]) Current Condition History of Current Condition Onset Date February, Current Complaints Positional vertigo History of Current Condition Pt is a 68 year old male complaining of a five month history of motion-induced vertigo. Pt reports episodes last a few seconds. Symptoms are provoked by getting into and out of bed, or rolling over. Pt began following hitting his head when falling out of a tree, which also resulted in a femoral fracture . At the time, pt was transported to [facility], and noticed when he would get up, he would feel very woozy, but just assumed it had to do with everything else going on. Dizziness became more apparent upon returning home from the hospital. Pt denies recent hearing changes, tinnitus, diplopia, dysarthria , discoordination, or decreased mentation/ consciousness. Pt denies hx of arrhythmia, seizure, migraines, neck problems, or CVA. Is currently on medication for HTN and cholesterol. Treatment Goals Patient/Caregiver Goals Eliminate dizziness PT-OP-C Subjective Start: 08/06/24 11:25 Freq: Status: Active Protocol: Document 08/13/24 12:10 DCW (Rec: 08/06/24 11:29 DCW [id number]) OP-PT Subjective Patient Comments Patient Comments My doctor was shocked I was still riding my motorcycle, but the dizziness doesn't really happen unless I lie down. Patient Questionnaires Dizziness Handicap Inventory DHI Score 12% DHI Functional Impairment 1 to 19% Impaired (Score 1-19) PT-OP-O Vestibular Start: 08/06/24 11:25 Freq: Status: Active Protocol: Document 08/13/24 12:10 DCW (Rec: 08/06/24 11:29 [facility] [id number]) Vestibular Assessment Auditory Tests Jack Test Within normal limits Rinne Test Negative Air Conduction Results Equal Visual Testing Smooth Pursuits Horizontal WNL Smooth Pursuits Vertical WNL Saccades Horizontal WNL Saccades Vertical WNL Heave Test Positive Bilateral Thrust Head Positive Bilateral Positional Testing Octavio-Hallpike Positive Left,Upbeating,< 60 Seconds PT-OP-Q Treatments Start: 08/06/24 11:25 Freq: Status: Active Protocol: Document 08/13/24 12:10 DCW (Rec: 08/06/24 11:29 DC [id number]) Canalithic Repositioning BPPV Treatment Shilpa Affected Canal(s) Left Posterior Reps x2 Comments Modified Shilpa PT-OP-T Assessment and Plan Start: 08/06/24 11:25 Freq: Status: Active Protocol: Document 08/13/24 12:10 DCW (Rec: 08/06/24 13:51 DC [id number]) Physical Therapy Assessment Rehab Potential Rehabilitation Potential Excellent Evaluation Complexity Number of Personal Factors/Comorbidities 3 or More Number of Body Systems Impaired 4 or More Clinical Presentation at Evaluation Unstable Impairments Impairments Balance,Functional Activities, Functional Mobility,Pain, Vestibular Goals Two Impairment Positive Left [place]-Hallpike Prison Goal (LTG) Pt to present with all positional testing negative bilaterally LTG Duration 09/06/24 One Impairment Pt experiences vertigo with positional changes Prison Goal (LTG) Pt to report ability to perform all bed mobility without any symptoms of vertigo LTG Duration 09/06/24 Assessment Summary Assessment During left [place]-Hallpike test, pt complained of vertigo and demonstrated up-beating, torsional nystagmus lasting approximately 15 seconds, consistent with diagnosis of left-sided posterior canal BPPV, canalithiasis-type. Pt was treated with a left-sided modified Shilpa maneuver. Pt complained of symptoms in the first and third position, which is normally indicative of a successful treatment. Further positional testing was still present, but significantly reduced, and a second modified Shilpa maneuver was performed. Pt was educated on BPPV, expectations for treatment, possible recurrence (BPPV has a ~50% recurrence rate in the five years following treatment), and post-Shilpa restrictions. Pt to return in ~1 week for a follow-up appointment, and intermittently afterward as indicated for treatment of BPPV. Physical Therapy Plan Frequency and Duration Frequency of Treatment 1-2x/week Plan of Care Start Date 08/06/24 Plan of Care End Date 09/06/24 Therapeutic Interventions Therapeutic Interventions Canalithic Repositioning,Home Exercise Program,Manual Therapy,Neuromuscular Re- education,Patient/Caregiver Education,Self-Care/Home Management,Therapeutic Activities,Therapeutic Exercises,Vestibular Rehabilitation Next Visit Focus/Plan Next Note Type Treatment Note Next Visit Plan Positional testing, CRM as indicated
--- NOTE | 2024-08-06 13:51 | PT.OPPOC ---
Physical, Occupational & Speech Therapy At [facility] Current Diagnoses Benign paroxysmal vertigo, bilateral (08/12/24) Peripheral vascular disease, unspecified (08/12/24) Visit Care Team Role Provider Type Lisa Rivas MD Attending Provider Physician Family Provider Primary Care Provider Referring Provider Specialty: Family Practice Address: [address] [place] [address], [facility] Email: [email or web address] Plan Of Care PT-OP-B Current Condition Start: 08/06/24 11:25 Freq: Status: Active Protocol: Document 08/13/24 12:10 DCW (Rec: 08/06/24 13:51 DCW [id number]) Current Condition History of Current Condition Onset Date February, Current Complaints Positional vertigo History of Current Condition Pt is a 68 year old male complaining of a five month history of motion-induced vertigo. Pt reports episodes last a few seconds. Symptoms are provoked by getting into and out of bed, or rolling over. Pt began following hitting his head when falling out of a tree, which also resulted in a femoral fracture . At the time, pt was transported to [facility], and noticed when he would get up, he would feel very woozy, but just assumed it had to do with everything else going on. Dizziness became more apparent upon returning home from the hospital. Pt denies recent hearing changes, tinnitus, diplopia, dysarthria , discoordination, or decreased mentation/ consciousness. Pt denies hx of arrhythmia, seizure, migraines, neck problems, or CVA. Is currently on medication for HTN and cholesterol. Treatment Goals Patient/Caregiver Goals Eliminate dizziness PT-OP-T Assessment and Plan Start: 08/06/24 11:25 Freq: Status: Active Protocol: Document 08/13/24 12:10 DCW (Rec: 08/06/24 13:51 DCW [id number]) Physical Therapy Assessment Rehab Potential Rehabilitation Potential Excellent Evaluation Complexity Number of Personal Factors/Comorbidities 3 or More Number of Body Systems Impaired 4 or More Clinical Presentation at Evaluation Unstable Impairments Impairments Balance,Functional Activities, Functional Mobility,Pain, Vestibular Goals Two Impairment Positive Left [place]-Hallpike Custodial Goal (LTG) Pt to present with all positional testing negative bilaterally LTG Duration 09/06/24 One Impairment Pt experiences vertigo with positional changes Custodial Goal (LTG) Pt to report ability to perform all bed mobility without any symptoms of vertigo LTG Duration 09/06/24 Assessment Summary Assessment During left [place]-Hallpike test, pt complained of vertigo and demonstrated up-beating, torsional nystagmus lasting approximately 15 seconds, consistent with diagnosis of left-sided posterior canal BPPV, canalithiasis-type. Pt was treated with a left-sided modified Shilpa maneuver. Pt complained of symptoms in the first and third position, which is normally indicative of a successful treatment. Further positional testing was still present, but significantly reduced, and a second modified Shilpa maneuver was performed. Pt was educated on BPPV, expectations for treatment, possible recurrence (BPPV has a ~50% recurrence rate in the five years following treatment), and post-Shilpa restrictions. Pt to return in ~1 week for a follow-up appointment, and intermittently afterward as indicated for treatment of BPPV. Physical Therapy Plan Frequency and Duration Frequency of Treatment 1-2x/week Plan of Care Start Date 08/06/24 Plan of Care End Date 09/06/24 Therapeutic Interventions Therapeutic Interventions Canalithic Repositioning,Home Exercise Program,Manual Therapy,Neuromuscular Re- education,Patient/Caregiver Education,Self-Care/Home Management,Therapeutic Activities,Therapeutic Exercises,Vestibular Rehabilitation Next Visit Focus/Plan Next Note Type Treatment Note Next Visit Plan Positional testing, CRM as indicated Plan of Care Dates Plan of Care Start Date 08/06/24 Plan of Care End Date 09/06/24 Electronically Signed by: Mynor Poole, PT 08/13/24 [id number] If you are in agreement with this Plan of Care, please return a signed and dated copy. I have reviewed this Plan of Care and certify that the skilled therapy services above are required to meet the patient?s needs. Physician Signature Date Printed Name and Credentials Clinical Instructor Signature Printed Name and Credentials
--- NOTE | 2024-08-12 15:49 | PT.OTN ---
Current Diagnoses Benign paroxysmal vertigo, bilateral (08/12/24) Peripheral vascular disease, unspecified (08/12/24) Physical Therapy Treatment Note PT-OP-A Visit Information Start: 08/06/24 11:25 Freq: Status: Active Protocol: Document 08/12/24 15:15 DCW (Rec: 08/12/24 15:49 DCW [id number]) Out-Patient Physical Therapy Visit Information Visit Information Visit Type Treatment Note Visit Start Time 15:15 Visit Stop Time 15:45 Visit Number 2 Number of RECRUITING INTERNSHIP Visits 0 Evaluation Information Evaluation Date 08/06/24 PT-OP-B Current Condition Start: 08/06/24 11:25 Freq: Status: Active Protocol: Document 08/06/24 10:45 DCW (Rec: 08/06/24 13:51 DCW [id number]) Current Condition History of Current Condition Onset Date February, Current Complaints Positional vertigo History of Current Condition Pt is a 68 year old male complaining of a five month history of motion-induced vertigo. Pt reports episodes last a few seconds. Symptoms are provoked by getting into and out of bed, or rolling over. Pt began following hitting his head when falling out of a tree, which also resulted in a femoral fracture . At the time, pt was transported to [facility], and noticed when he would get up, he would feel very woozy, but just assumed it had to do with everything else going on. Dizziness became more apparent upon returning home from the hospital. Pt denies recent hearing changes, tinnitus, diplopia, dysarthria , discoordination, or decreased mentation/ consciousness. Pt denies hx of arrhythmia, seizure, migraines, neck problems, or CVA. Is currently on medication for HTN and cholesterol. Treatment Goals Patient/Caregiver Goals Eliminate dizziness PT-OP-C Subjective Start: 08/06/24 11:25 Freq: Status: Active Protocol: Document 08/12/24 15:15 DCW (Rec: 08/12/24 15:49 DCW [id number]) OP-PT Subjective Patient Comments Patient Comments Pt was in really rough shap on Saturday, could barely get out of bed, very dizzy, was unsure if it was a brief illness or if his positional vertigo had been bothering him. PT-OP-O Vestibular Start: 08/06/24 11:25 Freq: Status: Active Protocol: Document 08/12/24 15:15 DCW (Rec: 08/12/24 15:49 DCW [id number]) Vestibular Assessment Positional Testing [place]-Hallpike Positive Left,Upbeating,< 60 Seconds PT-OP-Q Treatments Start: 08/06/24 11:25 Freq: Status: Active Protocol: Document 08/12/24 15:15 DCW (Rec: 08/12/24 15:49 DCW [id number]) Manual Therapy Treatment Other Other Manual Treatments Positional testing Canalithic Repositioning BPPV Treatment Shilpa Affected Canal(s) Left Posterior Reps x2 Comments Modified Shilpa PT-OP-T Assessment and Plan Start: 08/06/24: Freq: Status: Active Protocol: Document 08/12/24 15:15 DCW (Rec: 08/12/24 15:49 DCW [id number]) Physical Therapy Assessment Impairments Impairments Balance,Functional Activities, Functional Mobility,Pain, Vestibular Goals Two Impairment Positive Left [place]-Hallpike Lens Grinder Goal (LTG) Pt to present with all positional testing negative bilaterally LTG Duration 09/06/24 One Impairment Pt experiences vertigo with positional changes [facility] Goal (LTG) Pt to report ability to perform all bed mobility without any symptoms of vertigo LTG Duration 09/06/24 Assessment Summary Assessment Pt once again exhibits positive left Octavio-Hallpike with up-beating torsional nystagmus lasting 20 seconds. A left modified Shilpa maneuver was performed. Further testing showed very mild symptoms, and a second modified Shilpa was performed. Recommend pt follow-up for positional re-testing and CRM as needed in the next week. Physical Therapy Plan Frequency and Duration Frequency of Treatment 1-2x/week Plan of Care Start Date 08/06/24 Plan of Care End Date 09/06/24 Therapeutic Interventions Therapeutic Interventions Canalithic Repositioning,Home Exercise Program,Manual Therapy,Neuromuscular Re- education,Patient/Caregiver Education,Self-Care/Home Management,Therapeutic Activities,Therapeutic Exercises,Vestibular Rehabilitation Next Visit Focus/Plan Next Note Type Treatment Note Next Visit Plan Positional testing, CRM as indicated
--- NOTE | 2024-08-21 09:13 | PT.OTN ---
Current Diagnoses Benign paroxysmal vertigo, bilateral (08/21/24) Peripheral vascular disease, unspecified (08/21/24) Physical Therapy Treatment Note PT-OP-A Visit Information Start: 08/06/24 11:25 Freq: Status: Active Protocol: Document 08/21/24 09:00 DCW (Rec: 08/21/24 09:13 DCW [id number]) Out-Patient Physical Therapy Visit Information Visit Information Visit Type Discharge Summary Visit Start Time 09:00 Visit Stop Time 09:10 Visit Number 3 Number of HARMONIC ANALYST Visits 0 Evaluation Information Evaluation Date 08/06/24 PT-OP-B Current Condition Start: 08/06/24 11:25 Freq: Status: Active Protocol: Document 08/06/24 10:45 DCW (Rec: 08/06/24 13:51 DCW [id number]) Current Condition History of Current Condition Onset Date February, Current Complaints Positional vertigo History of Current Condition Pt is a 68 year old male complaining of a five month history of motion-induced vertigo. Pt reports episodes last a few seconds. Symptoms are provoked by getting into and out of bed, or rolling over. Pt began following hitting his head when falling out of a tree, which also resulted in a femoral fracture . At the time, pt was transported to [facility], and noticed when he would get up, he would feel very woozy, but just assumed it had to do with everything else going on. Dizziness became more apparent upon returning home from the hospital. Pt denies recent hearing changes, tinnitus, diplopia, dysarthria , discoordination, or decreased mentation/ consciousness. Pt denies hx of arrhythmia, seizure, migraines, neck problems, or CVA. Is currently on medication for HTN and cholesterol. Treatment Goals Patient/Caregiver Goals Eliminate dizziness PT-OP-C Subjective Start: 08/06/24 11:25 Freq: Status: Active Protocol: Document 08/21/24 09:00 DCW (Rec: 08/21/24 09:13 DCW [id number]) OP-PT Subjective Patient Comments Patient Comments I haven't really noticed it. PT-OP-O Vestibular Start: 08/06/24 11:25 Freq: Status: Active Protocol: Document 08/21/24 09:00 DCW (Rec: 08/21/24 09:13 DCW [id number]) Vestibular Assessment Positional Testing Octavio-Hallpike Negative Left,Negative Right Rolling Test Negative Left,Negative Right PT-OP-Q Treatments Start: 08/06/24 11:25 Freq: Status: Active Protocol: Document 08/21/24 09:00 DCW (Rec: 08/21/24 09:13 DCW [id number]) Manual Therapy Treatment Other Other Manual Treatments Positional testing PT-OP-T Assessment and Plan Start: 08/06/24 11:25 Freq: Status: Active Protocol: Document 08/21/24 09:00 DCW (Rec: 08/21/24 09:13 DCW [id number]) Physical Therapy Assessment Impairments Impairments Balance,Functional Activities, Functional Mobility,Pain, Vestibular Goals Two Impairment Positive Left Octavio-Hallpike [place] Goal (LTG) Pt to present with all positional testing negative bilaterally LTG Duration Met One Impairment Pt experiences vertigo with positional changes [place] Goal (LTG) Pt to report ability to perform all bed mobility without any symptoms of vertigo LTG Duration Met Assessment Summary Assessment Pt presents with entirely negative positional testing, notes he is able to perform all bed mobility without symptoms. Pt has met all goals , demonstrates understanding of BPPV information. Pt appropriate to discharge from vestibular therapy at this time. Physical Therapy Plan Frequency and Duration Frequency of Treatment 1-2x/week Plan of Care Start Date 08/06/24 Plan of Care End Date 09/06/24 Therapeutic Interventions Therapeutic Interventions Canalithic Repositioning,Home Exercise Program,Manual Therapy,Neuromuscular Re- education,Patient/Caregiver Education,Self-Care/Home Management,Therapeutic Activities,Therapeutic Exercises,Vestibular Rehabilitation Discharge Physical Therapy Discharge Reasons Goals Met Next Visit Focus/Plan Next Note Type Discharge Summary
== END 2024-08-21 09:51 | disposition home or self-care (01) ==
LOC: PHYS 09:00
PROVIDERS: Family Provider Family Medicine; PCP Family Medicine; Referring Provider Family Medicine; Visit Provider Family Medicine
DX: H81.13 Benign paroxysmal vertigo, bilateral (principal); I73.9 Peripheral vascular disease, unspecified
CPT/HCPCS: 95992; 97140; 97163

== ENCOUNTER 2024-08-31 09:53 | Day surgery (SDC) | payer OTHER, SELFPAY ==
--- NOTE | 2024-08-31 | PATH_ITS ---
[facility] Accession Number: [id number] No. of containers..01 Tissue . 01 Material submitted: . colon - SIGMOID COLON POLYP . 01 Diagnosis: SIGMOID COLON POLYP: Hyperplastic polyp. STO 09/01/20241815 Local . 01 Electronically signed: . Yadiel Browning MD, Pathologist NPI- [id number] . 01 Gross description: . SIGMOID COLON POLYP: Received in formalin is 1 fragment(s) of marti, soft tissue measuring 0.8 x 0.7 x 0.2 cm submitted entirely in 1 cassette(s) /MATTEO 09/01/20241815 Local . 01 Pathologist provided ICD-10: K63.5 . 01 CPT . 353370 Specimen Comment: A courtesy copy of this report has been sent to [facility] Pathology Performed at: [address] [id number] MD Yadiel Browning MD Phone: [phone]
[2024-08-31 10:41] VITALS: BP 139/77; PULSE 77; RESP 20; TEMP 36.5; O2SAT 99
[2024-08-31] MEDS: LACTATED RINGERS 1,000 ML 42 ML IV (11:02)
--- NOTE | 2024-08-31 11:20 | P.HP_ITS ---
History of Present Illness History of Present Illness Date Patient Seen: 08/31/24 Time Patient Seen: 11:20 Chief complaint: Colonoscopy Narrative: 68-year-old white male presents for colon screening. Had a failed prepped back in May. Previous colonoscopies unremarkable. PFSH Family History Mother Cancer Social History household members: spouse Smoking Status: Current some day smoker alcohol intake: former Meds Home Medications and Allergies Home Medications Medication Instructions Recorded Confirmed Type atorvastatin 10 mg tablet 60 mg PO BEDTIME 05/15/19 06/05/24 History citalopram 10 mg tablet 20 mg PO DAILY 05/15/19 06/05/24 History losartan 25 mg tablet 100 mg PO DAILY 11/21/21 06/05/24 History hydroxyurea 500 mg capsule (Hydrea) 500 mg PO DAILY #90 caplets 03/20/22 06/05/24 Rx aspirin 81 mg tablet 81 mg PO DAILY 06/05/24 06/05/24 History peg 3350-electrolytes 236 240 ml PO Q10M #4,000 mL 07/30/24 Rx gram-22.74 gram-6.74 gram-5.86 gram solution (Golytely) Allergies Allergy/AdvReac Type Severity Reaction Status Date / Time No Known Drug Allergies Allergy Verified 06/05/24 14:33 Review of Systems Review of Systems ROS: Yes All systems reviewed with the patient and are negative except as otherwise documented Exam Vital Signs (past 8 hours): - 08/31/24 10:41 Temperature 97.7 F Pulse Rate 77 Respiratory Rate 20 Blood Pressure 139/77 Pulse Oximetry 99 Oxygen Delivery Method Room Air Oxygen Delivery Method Room Air Narrative Exam Narrative: Gen: NAD, sitting comfortably in bed, appears well HEENT: Sclera are anicteric, head is normocephalic and atraumatic, trachea is midline. CV: RRR, no JVD Resp: clear to auscultation bilaterally, equal chest wall movement bilaterally Abd: soft, nontender, normoactive bowel sounds Ext: no edema, full range of motion Neuro: Cranial nerves II-XII grossly intact, no focal deficits Skin: No erythema or ecchymosis Assessment & Plan Assessment and plan (1) Family history of colon cancer: Status: Acute Assessment & Plan narrative: Patient presents for colonoscopy Risks, benefits, alternatives to colonoscopy explained, including but not limited to bowel perforation or other serious complication requiring surgery at less than 1 in 5000 colonoscopies, abdominal pain, cramping or bleeding and less than 1% of colonoscopies, and the chances that we find a diagnosis that would require further intervention of about 2%. Patient agrees to proceed. Time-Based Coding :: [TOTAL MINUTES] spent with patient and on the chart (including review of chart, obtaining history, exam, reviewing outside data, placing orders, documenting exam and treatment plan, and counseling patient) on [DATE]. PROFEE Delivery Route Driver Document charge(s): No
--- NOTE | 2024-08-31 11:36 | PM.OP.COLON ---
Operative Date/Time/Diagnoses Date of procedure: 08/31/24 Time of procedure: 11:36 Pre-op diagnosis: Colon screening Post-op diagnosis: same (Sigmoid polyp) Procedure & Clinicians Study performed: Colonoscopy with cold snare polypectomy of sigmoid polyp Same procedure as scheduled: Yes Indications: Colon screening Surgeon: Fabian Valerio Procedure Notes SCOAP/Timeout: Performed Procedure in detail: Time-out was performed. Mac was induced. Patient was placed in left lateral decubitus position. The perineum was inspected without any gross abnormality. Lubricated pediatric colonoscope was inserted and advanced to the cecum. The terminal ileum was intubated. The colonoscope was withdrawn slowly inspecting the circumference of the colon. Patient had sigmoid diverticulosis. The polyp was noted in the sigmoid, less than 10 mm in size. Removed with cold snare polypectomy completely and retrieved. Very small polyps may have been missed, prep quality was adequate. Retroflexed view of the rectum showed small, non prolapsed nonbleeding internal hemorrhoids. The scope was withdrawn the patient was taken to PACU in good condition. Scope withdrawal time: 6 Sedation minutes: 11 Findings: divertiulosis, internal hemorrhoids and polyp(s) Specimen(s): other (1. Sigmoid polyp) Complications: none Impression: Sigmoid polyp, diverticulosis, internal hemorrhoids Post-procedure Recommendations: Colonoscopy in 5 years (Next colonoscopy in 7 years) Follow up: as needed Disposition: PACU
[2024-08-31 11:38] VITALS: BP 81/51; PULSE 14; RESP 91; TEMP 36.2
[2024-08-31 11:43] VITALS: BP 92/61; PULSE 19; RESP 98
[2024-08-31 11:48] VITALS: BP 95/56; PULSE 28; RESP 98
[2024-08-31 11:53] VITALS: BP 91/53; PULSE 13; RESP 96; O2SAT 99
[2024-08-31 12:04] VITALS: BP 113/68; PULSE 79; RESP 14; O2SAT 98
== END 2024-08-31 12:10 | disposition home or self-care (01) ==
PROVIDERS: Family Provider Family Medicine; PCP Family Medicine; Referring Provider Surgery; Visit Provider Surgery
PROC: 0DJD8ZZ Inspection of Lower Intestinal Tract, Via Natural or Artificial Opening Endoscopic (ICD-10-PCS; CPT 45378; principal; 2024-08-31 11:15)
DX: Z12.11 Encounter for screening for malignant neoplasm of colon (principal); Z80.0 Family history of malignant neoplasm of digestive organs; F17.210 Nicotine dependence, cigarettes, uncomplicated; K64.8 Other hemorrhoids; K57.30 Diverticulosis of large intestine without perforation or abscess without bleeding; K63.5 Polyp of colon
CPT/HCPCS: 45385; J2704

== ENCOUNTER → 2025-06-29 08:16 | Outpatient (CLI) | payer OTHER, SELFPAY ==
--- NOTE | 2025-06-29 08:17 | DI.MRI.S_ITS ---
PROCEDURE: MR LUMBAR SPINE WO CON INDICATIONS: Chronic low back pain with sciatica TECHNIQUE: Noncontrast sagittal T1 spin echo and T2 fast echo, sagittal STIR, and T2 fast spin echo through the lumbar spine. In cases with scoliosis, additional coronal T2 fast spin echo may be performed. COMPARISON: None. FINDINGS: Image quality: Excellent. Alignment and Curvature: There is normal bony alignment. Bone: Left L4-L5 laminotomy changes. Mild Modic type 1 reactive endplate changes adjacent to the L2-L3, L4-L5 and L5-S1 discs. Chronic L2 compression fracture the results in approximately 50% loss of normal anterior vertebral body height. No retropulsed fragments are kyphosis associated with the L2 compression fracture. No acute vertebral body compression fractures. Spinal Cord: Conus medullaris terminates at the L1 level. Visualized cord demonstrates normal signal and size. Paraspinous Soft Tissues: No paravertebral masses. T12-L1: Loss of disc signal and height. Moderate, diffuse disc bulge. Mild bilateral facet hypertrophy. Mild narrowing of the central canal. Moderate bilateral neural foraminal narrowing. No neural compression. L1-L2: Loss of disc signal. Moderate, diffuse disc bulge. Mild bilateral facet hypertrophy. Mild ligamentum flavum hypertrophy. Mild to moderate narrowing of the central canal. Moderate bilateral neural foraminal narrowing. No neural compression. L2-L3: Loss of disc signal. Moderate, diffuse disc bulge. Moderate bilateral facet hypertrophy. Moderate ligamentum flavum hypertrophy. Severe narrowing of the central canal with compression of the nerve roots of the cauda equina. Moderate bilateral neural foraminal narrowing. L3-L4: Loss of disc signal and height. Mild, diffuse disc bulge. Mild bilateral facet hypertrophy. Moderate ligamentum flavum hypertrophy. Moderate narrowing of the central canal. Moderate bilateral neural foraminal narrowing. No neural compression. L4-L5: Loss of disc signal and height. Mild, diffuse disc bulge. Mild bilateral facet hypertrophy. Mild to moderate narrowing of the central canal. Moderate bilateral neural foraminal narrowing. No neural compression. L5-S1: Loss of disc signal and height. Mild, diffuse disc bulge. Mild bilateral facet hypertrophy. No central stenosis. No neural foraminal narrowing. No neural compression. IMPRESSION: Multilevel degenerative disc disease. Multilevel facet arthropathy. Severe L2-L3 central canal stenosis with compression of the nerve roots of the cauda equina. No severe neural foraminal stenosis. Dictated by: Marisabel London MD, PhD on 06/29/2025 at 11:46 Approved by: Marisabel London MD, PhD on 06/29/2025 at 11:56
== END ==
LOC: MRI 08:17
PROVIDERS: Family Provider Family Medicine; PCP Family Medicine; Referring Provider Family Medicine; Visit Provider Family Medicine
DX: M51.16 Intervertebral disc disorders with radiculopathy, lumbar region (principal); M51.17 Intervertebral disc disorders with radiculopathy, lumbosacral region; M47.26 Other spondylosis with radiculopathy, lumbar region; M47.27 Other spondylosis with radiculopathy, lumbosacral region; M48.061 Spinal stenosis, lumbar region without neurogenic claudication; M48.56XA Collapsed vertebra, not elsewhere classified, lumbar region, initial encounter for fracture; G89.29 Other chronic pain
CPT/HCPCS: 72148